=== PATIENT | female | born 1985 | race Caucasian/White ===

== ENCOUNTER 2021-05-14 19:53 | Day surgery (SDC) | payer BC ==
[2021-05-14] MEDS ORDERED: hydrALAZINE 20 MG/ML VIAL SLOW IVP PRN (20:20)
[2021-05-14] MEDS ORDERED: Ondansetron PF 4 MG/2 ML Vial IVP PRN (20:20)
[2021-05-14 20:31] VITALS: BMI 39.3
[2021-05-14] MEDS ORDERED: Promethazine HCl 25 MG/ML VIAL IM SCH (22:00)
[2021-05-14] MEDS ORDERED: Morphine 10 MG/ML VIAL IM SCH (22:00)
== END 2021-05-14 22:44 | disposition home or self-care (01) ==
LOC: CSHLD/OP 19:53
PROVIDERS: ATTEND Obstetrics & Gynecology
DX: O47.1 False labor at or after 37 completed weeks of gestation (principal); Z3A.38 38 weeks gestation of pregnancy
CPT/HCPCS: 96372; 99282; J2270; J2550